=== PATIENT | female | born 1930 | race Caucasian/White ===

== ENCOUNTER 2018-12-20 12:50 | Inpatient (IN) | payer OTHER ==
[~2018-12-20] VITALS: Ht 162.6 cm; Wt 52.1 kg
[2018-12-20 14:09] VITALS: BP 174/106
[2018-12-20 16:53] LABS: ABSOLUTE NEUTROPHILS 3.6 thou/uL (1.4-8.2); BASOPHILS 2.3 % (0.0-2.0); EOSINOPHILS 6.4 % (0.0-3.0); HEMATOCRIT 23.5 % (37.0-47.0); HEMOGLOBIN 7.2 gm/dL (12.0-15.0); LYMPHOCYTES 22.1 % (24.0-44.0); MCH 22.5 pg (26.0-34.0); MCHC 30.6 g/dL (28.0-37.0); MCV 73.7 fL (80.0-100.0); MONOCYTES 9.5 % (1.0-8.0); PLATELET COUNT 256 thou/uL (150-400); POLYS 59.7 % (36.0-66.0); RBC 3.19 mil/uL (4.20-5.00); RDW 17.2 % (10.5-14.5)
[2018-12-20 17:05] LABS: % SATURATION 2 % (20-39); IRON 8 ug/dL (50-170); TIBC 353 ug/dL (250-450)
[2018-12-20 17:21] LABS: FOLIC ACID 19.6 ng/mL (8.6-58.9)
[2018-12-20 19:50] VITALS: BP 139/87
--- NOTE | 2018-12-20 20:02 | NUR ---
PT ARRIVED TO FLOOR DIRECT ADMIT FROM HOME AT 1430.ADMISSION HX,ASSESSMENT AND CARE PLAN COMPLETED.DR DO NOTIFIED ABOUT PT ARRIVAL TO UNIT AND HE ROUNDED ON PT.FEW MINUTES LATER,DR MUNOZ HERE AND ADDITIONAL ORDER NOTED. PT DTR HRE,UPDATES GIVEN.PT WILL BE HAVING BLOOD TRANSFUSION TONITE AND EGD IN AM.REPORT OFF TO NOC RN.
[2018-12-20 20:25] VITALS: BP 148/96; BP 170/98; BP 177/90
--- NOTE | 2018-12-21 02:45 | NUR ---
patient aox2 forgetful and confused. patient had 1 unit of blood and torelated well. patient c/o insomnia called awaiting for phone call. patient continues to say if she dont get sleep her blood pressure is high. blood pressure is 150/70, 80 at around 0100. patient is npo since midnight. patient asleep at this time breathing regular and unlaboured.
[2018-12-21 04:35] VITALS: BP 173/107
[2018-12-21 06:22] VITALS: BP 154/79
--- NOTE | 2018-12-21 08:06 | EKG ---
[address] [address] ELECTROCARDIOGRAM REPORT Name: RAVIN RAJPUT Room #: 460-P ADM IN M.R.#: [id number] Admission: 12/20/18 Attend Phys: Amos Espinosa Discharge: Date of : [birth year] Report #: [id number] THIS REPORT FOR: //name// [facility] Test Date: 2018-12-20 Test Time: 16:34:58 Pat Name: RAVIN RAJPUT Department: Room: 460 P Gender: F Pharmacist Manager: Amos TRUJILLO : 1930 Requested By: Luis Grier Order Number: [id number] MD: Amandeep Carvajal Measurements Intervals Edna Rate: 92 P: SD: QRS: -59 QRSD: 80 T: 68 QT: 370 QTc: 458 Interpretive Statements Atrial fibrillation Left anterior fascicular block Baseline wander in lead(s) II,III,aVL,aVF No previous ECG available for comparison Electronically Signed On 12-21-2018 8:06:33 CDT by Amandeep Carvajal [email or web address] <ELECTRONICALLY SIGNED> By: Amandeep Carvajal MD, [facility] 12/21/18 0806 1634 1634 Amandeep Carvajal MD, [facility] /EPI
[2018-12-21 08:47] VITALS: BP 169/108
--- NOTE | 2018-12-21 14:54 | NUR ---
PT ADMITTED RELATED TO ANEMIA. CM REVIEWED CHART AND SPOKE WITH CARE TEAM. CM MET WITH PT AT BEDSIDE THIS DAY. PT IS A&O X4. CM ROLE INTRODUCED. PT INDICATED SHE LIVES ALONE IN A HOUSE WITH 2 STEPS TO ENTER AND NO STEPS INSIDE. PT INDICATED SHE HAD USED A [employer]. PT INDICATED NO HH HX. PT INDICATED SHE PLANS TO DC HOME ONCE MEDICALLY STABLE. CM CALLED PT'S DTR LEONEL AND INDICATED THAT PT WAS TO GO FOR AN EGD. WE ARE AWAITING NEXT STEPS. CM TO FOLLOW INDICATED WITH DC PLANNING.
[2018-12-21 17:01] VITALS: BP 144/86
[2018-12-21 19:15] VITALS: BP 144/86
--- NOTE | 2018-12-21 20:10 | NUR ---
Discharge Pt discharged to home independently with family care. Discharge instructions reviewed and provided pt and family reverbalized understanding. To call 's office to schedule a f/u visit and plan is to have colonoscopy in a few weeks. Advised pt to call physician or return to emergency room if any signs of bleeding, chest pain or any other concerns or problems arise. Escorted to car via w/c with staff.
--- NOTE | 2018-12-22 11:26 | P ---
[facility] [place] [address] PROCEDURE REPORT Name: RAVIN RAJPUT Room #: 460-P [facility] IN M.R.#: [id number] Admission: 12/20/18 Attend Phys: Amos Espinosa Discharge: 12/21/18 Date of : [birth year] Report #: [id number] THIS REPORT FOR: //name// CC: Carlo Grier PROCEDURE PERFORMED: Upper endoscopy. HISTORY OF PRESENT ILLNESS: The patient is an 88-year-old female who has been feeling weak and having dyspnea on exertion. She was noted to be significantly anemic with a hemoglobin of 6.7 yesterday by her primary Dr. Luis Grier and was then admitted. She received 1 unit of packed cells yesterday. Her hemoglobin on admission here was 7.2. She denies any obvious bright red blood per rectum or melena. No previous history of endoscopy. She has been on Xarelto with her last dose yesterday morning. Plan is for EGD today. DESCRIPTION OF PROCEDURE: The risks and benefits of the procedure were explained to the patient, those risks including but not limited to bleeding, perforation and the risk of sedation. She understood these risks and gave informed consent. Sedation was given using propofol per anesthesia. Next, using a standard Olympus upper endoscope, the scope was placed in the patient's mouth and advanced under direct vision through the esophagus, stomach and into the second portion of the duodenum. The larynx was normal in appearance. The esophagus was normal throughout. The GE junction was normal. Overall, the gastric mucosa was normal in the fundus and body; however, in the antrum, there was gastritis with several clean white based ulcers, these were small, approximately 4-5 mm in size. No evidence of active bleeding, but possible source of bleed or anemia. The duodenal bulb, first and second portion were all normal. I was not able to take biopsies today to rule out sprue or H. pylori as the patient has been on Xarelto. The scope was then withdrawn and the procedure terminated. The patient tolerated the procedure well. IMPRESSION: 1. Multiple small antral ulcers, no active bleeding, but possible source of anemia. 2. Otherwise, normal upper endoscopy. RECOMMENDATIONS: 1. Continue PPI therapy. 2. Continue to hold Xarelto. 3. We will discuss options with Dr. Grier on the patient including possibly proceeding with colonoscopy in the near future. [address] [address] PROCEDURE REPORT Name: RAVIN RAJPUT Room #: 460-P [facility] IN .R.#: [id number] Admission: 12/20/18 Attend Phys: Amos Espinosa Discharge: 12/21/18 Date of : [birth year] Report #: [id number] Thank you for allowing me to participate in her care. <ELECTRONICALLY SIGNED> By: Jared Rodrigez MD 12/22/18 1126 1122 2126 Jared Rodrigez MD /jennifer
--- NOTE | 2018-12-24 06:53 | H ---
[facility] [place] [address] HISTORY AND PHYSICAL Name: RAVIN RAJPUT Room #: 460-P [facility] IN M.R.#: [id number] Admission: 12/20/18 Attend Phys: Amos Espinosa Discharge: 12/21/18 Date of : [birth year] Report #: [id number] THIS REPORT FOR: //name// CC: Luis Grier DATE OF SERVICE: 12/20/2018 ADMISSION HISTORY AND PHYSICAL CHIEF COMPLAINT: This is an 88-year-old female with shortness of breath. HISTORY OF PRESENT ILLNESS: This is an 88-year-old female with really good health leading up to this process, which she came into the office feeling short of breath without any other symptoms other than maybe some mild lower extremity edema. Physical examination was not helpful, but her hemoglobin was found to be 6.8 with an MCV of 75. Chest x-ray was negative along with her laboratory chemistries. She is admitted for further evaluation. PAST MEDICAL AND SURGICAL HISTORY: No other history of DVT. She had an appendectomy, had a previous fracture of her leg. MEDICATIONS: Medication list includes Xarelto and a multivitamin. SOCIAL HISTORY: She is fully active. No smoking or alcohol. FAMILY HISTORY: Noncontributory. REVIEW OF SYSTEMS: Otherwise, negative 10-point. PHYSICAL EXAMINATION: GENERAL: Shows her to be awake, alert and oriented. She is in no distress. VITAL SIGNS: Stable. HEENT: Otherwise, negative. NECK: Supple, without thyromegaly or adenopathy. CHEST: Clear. CARDIOVASCULAR: Showed a regular rhythm without murmur. ABDOMEN: Soft and nontender, without hepatosplenomegaly. EXTREMITIES: No cyanosis, clubbing, or edema. NEUROLOGIC: Intact. LABORATORY DATA: Fecal occult testing is pending. Laboratory parameters showed a hemoglobin of 6.8 with an MCV of 75. ASSESSMENT: This is an 88-year-old female with severe anemia that is symptomatic and highly suspicious [place] [address] HISTORY AND PHYSICAL Name: REGULORAVIN Abraham Room #: [address] [place] [address]#: [id number] Admission: 12/20/18 Attend Phys: Amos Espinosa Discharge: 12/21/18 Date of : [birth year] Report #: [id number] PLAN: Transfuse, load with iron, and endoscopy. <ELECTRONICALLY SIGNED> By: Luis Grier MD 12/24/18 0653 0828 Luis Grier MD /[facility]
== END 2018-12-21 20:05 | disposition home or self-care (01) | DRG 812 ==
LOC: TBA 12:50 → 4W 13:10
PROVIDERS: Nurse Practitioner; ADMIT Internal Medicine
PROC: 30233N1 Transfusion of Nonautologous Red Blood Cells into Peripheral Vein, Percutaneous Approach (ICD-10-PCS; principal; 2018-12-20)
PROC: 0DJ08ZZ Inspection of Upper Intestinal Tract, Via Natural or Artificial Opening Endoscopic (ICD-10-PCS; principal; 2018-12-20)
DX: D50.9 Iron deficiency anemia, unspecified (principal); K25.9 Gastric ulcer, unspecified as acute or chronic, without hemorrhage or perforation; Z90.49 Acquired absence of other specified parts of digestive tract; Z87.81 Personal history of (healed) traumatic fracture; Z86.718 Personal history of other venous thrombosis and embolism
CPT/HCPCS: 10047; 62110; 62900; 70005

== ENCOUNTER → 2019-03-28 | Outpatient (CLI) | payer OTHER | LOC: SJCVC 15:23 | DX: I48.21 Permanent atrial fibrillation (principal); R94.31 Abnormal electrocardiogram [ECG] [EKG]; I50.32 Chronic diastolic (congestive) heart failure; I27.20 Pulmonary hypertension, unspecified; E78.5 Hyperlipidemia, unspecified; Z79.82 Long term (current) use of aspirin; Z79.899 Other long term (current) drug therapy ==